=== PATIENT | male | born 1990 | race Caucasian/White ===

== ENCOUNTER 2018-11-28 17:21 | Emergency (ER) | payer BC ==
[~2018-11-28] VITALS: Ht 180.3 cm; Wt 98.0 kg
[2018-11-28 17:23] VITALS: BP 122/75; PULSE 80; RESP 20; Ht 180.3 cm; Wt 98.0 kg
[2018-11-28] MEDS ORDERED: SULF1TAB31 PO (18:25)
[2018-11-28] MEDS ORDERED: CEPH-443 PO (18:25)
--- NOTE | 2018-11-28 19:36 | ERD ---
ER Documentation Chief Complaint Chief Complaint had surgery on right arm needs ngoc taken out also look red swollen HPI 28-year-old male with no significant past medical history presenting to the emergency department complaining of some redness surrounding a surgical site after procedure approximately 8 days ago. He had a removal of a mass from his right arm. He is noticed some whitish discharge from the area. He denies any fevers or chills or other symptoms at this time. Symptoms are overall moderate in severity. He took no medication for relief of symptoms. ROS All systems reviewed and are negative except as per history of present illness. Medications Home Meds Active Scripts Sulfamethoxazole/Trimethoprim* (Bactrim Ds* Tablet) 1 Each Tablet, 1 TAB PO BID, #14 TAB Prov:CLARENCE KIRK PA-C 11/28/18 Cephalexin* (Keflex*) 500 Mg Capsule, 500 MG PO TID for 7 Days, CAP Prov:CLARENCE KIRK PA-C 11/28/18 Allergies Allergies: Coded Allergies: No Known Allergy (Unverified , 11/20/18) PMhx/Soc History of Surgery: Yes (stomach resection) Anesthesia Reaction: No Hx Neurological Disorder: No Hx Respiratory Disorders: No Hx Cardiac Disorders: No Hx Psychiatric Problems: No Hx Miscellaneous Medical Probl: No Hx Alcohol Use: Yes (social) Hx Substance Use: Yes (marijuana on saturday) Hx Tobacco Use: Yes Smoking Status: Current every day smoker FmHx Family History: No diabetes Physical Exam Vitals Vital Signs Date Temp Pulse Resp B/P (MAP) Pulse Ox O2 O2 Flow FiO2 Time Delivery Rate 11/28/18 97.7 80 20 122/75 98 17:23 (91) Physical Exam Const: No acute distress Head: Atraumatic Eyes: Normal Conjunctiva ENT: Normal External Ears, Nose and Mouth. Neck: Full range of motion. No meningismus. Resp: No respiratory distress. Skin: [address] over well-healing laceration to the anterior medial right upper extremity. There is some mild surrounding erythema. No significant purulent drainage noted. No lymphatic streaking. Back: No midline or flank tenderness Ext: No cyanosis, or edema Neur: Awake and alert Psych: Normal Mood and Affect Procedures/MDM 28-year-old male presenting to the emergency department for wound recheck of his right upper extremity after surgical procedure. There was some surrounding erythema concerning for possible cellulitis. Patient is stable and appropriate for discharge and further treatment as an outpatient. He will be given prescription for Bactrim and Keflex. No evidence to suggest necrotizing fasciitis, sepsis, or other emergencies. The patient agreed with the diagnosis, plan, need for follow-up, return precautions. All questions and concerns were addressed prior to discharge. Departure Diagnosis: Primary Impression: Encounter for wound re-check Condition: Fair Patient Instructions: Post Op Wound Check, Pain Additional Instructions: Call your primary care doctor TOMORROW for an appointment during the next 1-2 days.See the doctor sooner or return here if your condition worsens before your appointment time. CLARENCE KIRK PA-C Nov 28, 2018 19:36
== END 2018-11-28 18:49 | disposition home or self-care (01) ==
LOC: FTE 17:21
DX: Z48.01 Encounter for change or removal of surgical wound dressing (principal); F17.210 Nicotine dependence, cigarettes, uncomplicated
CPT/HCPCS: 99283